=== PATIENT | male | born 2000 | race Caucasian/White ===

== ENCOUNTER 2024-09-23 10:16 | Emergency (ER) | payer BC ==
[2024-09-23] MEDS ORDERED: Ondansetron PF 4 MG/2 ML Vial ONE (10:35)
[2024-09-23] MEDS ORDERED: Dicyclomine 20 MG/2 ML VIAL ONE (10:43)
[2024-09-23 11:09] LABS: #Basophils 0.02 10x3/uL (0.0-0.2); #Eosinophils 0.08 10x3/uL (0.0-0.5); #Monocytes 0.79 10x3/uL (0.0-1.1); #Neutrophils 4.38 10x3/uL (1.5-8.4); %Basophils 0.3 % (0.0-2.0); %Eosinophils 1.3 % (0.0-6.0); %Monocytes 12.9 % (0.0-10.0); %Neutrophils 71.3 % (40.0-75.0); ALT (SGPT) 14 U/L (8-55); AST (SGOT) 14 U/L (5-34); Albumin 4.1 g/dL (3.5-5.0); Alkaline Phosphatase 50 U/L (40-110); Anion Gap 13 mmol/L (10-20); BUN (Urea Nitrogen) 12 mg/dL (8.9-20.6); Bilirubin, Total 0.9 mg/dL (0.2-1.2); Calc. Creatinine Clearance 0 mL/min (70-130); Calcium 9.5 mg/dL (7.8-10.44); Carbon Dioxide 27 mmol/L (22-29); Chloride 105 mmol/L (98-107); Estimated GFR 115; Globulin 2.5 g/dL (2.4-3.5); Glucose 98 mg/dL (70-105); Hematocrit 48.1 % (38.8-50.0); Hemoglobin 16.1 g/dL (13.5-17.5); Lipase 19 U/L (8-78); Mean Corpuscular HGB CONC 33.5 g/dL (32.0-36.0); Mean Corpuscular Hemoglobin 28.8 pg (27.0-33.0); Mean Corpuscular Volume 85.9 fL (81.2-95.1); Mean Platelet Volume 9.3 fL (7.4-10.4); Platelet Count 194 10x3/uL (150-450); Potassium 4.8 mmol/L (3.5-5.1); Protein, Total 6.6 g/dL (6.0-8.3); RBC Distribution Width 11.9 % (11.5-14.5); Sodium 140 mmol/L (136-145); White Blood Cell (WBC) Count 6.1 10x3/uL (3.5-10.5)
== END 2024-09-23 11:34 | disposition home or self-care (01) ==
LOC: CSHERS 10:16
DX: R11.2 Nausea with vomiting, unspecified (principal); R19.7 Diarrhea, unspecified
CPT/HCPCS: 36415; 80053; 83690; 85025; 96372; 96374; J2405